=== PATIENT | female | born 1950 | race African-American/Black ===

== ENCOUNTER 2018-08-18 17:31 | Inpatient (IN) ==
[2018-08-18 18:00] LABS: BASO# 0.01 X1000 (0.0-0.2); BASO% 0.2 % (0.0-0.8); EOS% 1.7 % (0.0-10.0); HEMATOCRIT 30.3 % (37.0-47.0); HEMOGLOBIN 9.8 g/dL (12.0-16.0); IMM GRAN# 0.01 X1000 (0.0-0.04); IMM GRAN% 0.2 % (0.0-0.5); LYMPH# 1.04 X1000 (1.2-3.4); LYMPH% 17.2 % (20.5-51.1); MCH 27.5 PG (27-31); MCHC 32.3 g/dL (33-37); MCV 85.1 FL (81-99); MONO# 0.51 X1000 (0.11-0.59); MONO% 8.4 % (1.7-9.3); MPV 11.2 FL (7.4-10.4); NEUT# 4.39 X1000 (1.4-6.5); NEUT% 72.3 % (42.2-75.2); PLT 224 X1000 (130-400); RBC 3.56 XMIL (4.2-5.4); RDW 14.5 % (11.5-14.5); WBC 6.06 X1000 (4.8-10.8)
[2018-08-18 18:18] LABS: AGAP 11; ALKALINE PHOSPHATASE 87 U/L (32-104); BUN 9 mg/dL (8-22); CALCIUM 8.7 mg/dL (8.8-10.2); CHLORIDE 102 mmol/L (98-107); COSMO 274; CREATININE 0.6 mg/dL (0.5-0.9); ESTIMATED GFR > 60; GLUCOSE 93 mg/dL (70-104); GOT 17 U/L (10-30); GPT 10 U/L (10-36); LIPASE 11 U/L (13-60); POTASSIUM 3.2 mmol/L (3.5-5.1); SODIUM 138 mmol/L (136-145); TCO2 25 mmol/L (25-35); TOTAL PROTEIN 7.2 g/dL (6.3-8.3)
[2018-08-18] MEDS ORDERED: ZOFRAN IV ONE (18:22)
--- NOTE | 2018-08-18 18:22 | PROVIDER DOCUMENTATION ---
HPI-Abdominal Pain/GI Problem - General Chief Complaint: Abdominal Pain Stated Complaint: ABD PAIN Time Seen by Provider: 08/18/18 17:58 Source: patient, family Allergies/Adverse Reactions: Patient Allergies Allergy/AdvReac Type Severity Reaction Status Date / Time aspirin Allergy Unknown Verified 08/12/18 18:21 Home Medications: Home Medication List Medication Instructions Recorded Confirmed Last Taken Type Amlodipine [Norvasc] 10 mg PO DAILY #30 tablet 11/28/16 08/12/18 Unknown Rx Hydralazine [Apresoline] 25 mg PO BID #60 tablet 11/28/16 08/12/18 Unknown Rx Lisinopril 40 mg PO DAILY #30 tablet 11/28/16 08/12/18 Unknown Rx Albuterol 2.5MG/Ipratrop 0.5MG 3 ml INH Q6H PRN PRN #30 neb 02/06/17 08/12/18 Unknown Rx [Duoneb] Metoprolol Succinate E.r. [Toprol 50 mg PO DAILY #90 tablet 02/06/17 08/12/18 Unknown Rx Xl] Albuterol Sulfate [Albuterol 18 gm IH Q4H #1 hfa.aer.ad 06/03/17 08/12/18 Unknown Rx Sulfate Hfa] - History of Present Illness-ABD Nature of Presenting Problems: Off and on LLQ AP for 2 to 3 weeks, yesterday became a steady pain and by afternoon RLQ pain was added to it, ache, crampy, nausea with vomiting x 2 last night, nonbloody nonbilious, no fever, no diarrhea, normal stool around 0300 this am. PS large bowel resection 2011 for diverticulitis, partial hysto PMH HTN [place] in 1978, chronic pain but has missed several appointments so has not had [place] 10 for awhile. Pain Radiation: reports: no radiation Modifying Factors: improves with: nothing Bruising or Bleeding Gums?: No Similar Symptoms Previously?: Yes Recently seen or treated by another doctor?: No Review of Systems - Adult - REVIEW OF SYSTEMS - ADULT Constitutional: reports: no symptoms reported Eyes: reports: no symptoms reported Ears, Nose, Mouth & Throat: reports: no symptoms reported Cardiovascular: reports: no symptoms reported Respiratory: reports: no symptoms reported Gastrointestinal: reports: no symptoms reported Genitourinary: reports: no symptoms reported Musculoskeletal: reports: no symptoms reported Integumentary: reports: no symptoms reported Neurological: reports: no symptoms reported Psychiatric: reports: no symptoms reported Endocrine: reports: no symptoms reported Hematologic/Lymphatic: reports: no symptoms reported Allergic/Immunologic: reports: no symptoms reported All Other Systems: Reviewed and Negative Past History - Adult - PAST MEDICAL HISTORY-ADULT Review of Records: reports: Nursing Assessment Review, Medications Reviewed Major Childhood Illnesses: reports: denies history Cardiovascular: reports: CHF, HTN, [place] Respiratory: reports: asthma, bronchitis, COPD, sleep apnea Gastrointestinal: reports: GERD Obstetrical/Gynecological: reports: uterine/ovarian cancer Neurological: reports: CVA Psychiatric: reports: depression - PRIOR SURGERIES/PROCEDURES Surgical/Procedure History: reports: hysterectomy, BTL, other (cataract removal, oopherectomy) - IMMUNIZATION STATUS Childhood Immunizations: See Nurse Assessment Flu Vaccine: See Nurse Assessment Physical Exam-General - PHYSICAL EXAM-ADULT Initial Vital Signs Reviewed: Yes - CONSTITUTIONAL General Appearance: alert, mild distress - EYES Eyes: pink conjunctivae - HEAD, EARS, NOSE, MOUTH & THROAT HENMT: other (dry mucus membraines) - NECK Neck: supple - RESPIRATORY Respiratory: lungs clear, normal breath sounds, no pleuratic chest pain, no respiratory distress - CARDIOVASCULAR Cardiovascular: normal peripheral pulses, regular rate, rhythm, no edema - GASTROINTESTINAL (ABDOMEN) Abdominal Exam: soft, no organomegaly, no pulsatile mass, tenderness (diffusely) , other (decreased bowel sounds diffusely) - LYMPHATIC Lymphatic: no adenopathy - MUSCULOSKELETAL Extremity: normal range of motion Peripheral Pulses: radial (R): 2+, radial (L): 2+ - SKIN Integumentary: normal color, normal turgor, warm/dry - NEUROLOGIC Neurologic: grossly normal, no motor/sensory deficits - PSYCHIATRIC Psych/Mental Status: normal mood/affect, normal thought content, normal thought process Progress - PLAN OF CARE/RESULTS Progress/Plan/Lab Results: Vital Signs - 8 hr 08/18/18 17:34 Temperature 98.6 F Pulse Rate 79 Respiratory Rate 18 Blood Pressure 174/100 O2 Sat by Pulse Oximetry 98 Laboratory Results - last 24 hr 08/18/18 17:35 WBC 6.06 RBC 3.56 L Hgb 9.8 L Hct 30.3 L MCV 85.1 MCH 27.5 MCHC 32.3 L RDW Std Deviation 14.5 Plt Count 224 MPV 11.2 H Immature Gran % (Auto) 0.2 Neut % (Auto) 72.3 Lymph % (Auto) 17.2 L [place] % (Auto) 8.4 Eos % (Auto) 1.7 Baso % (Auto) 0.2 Immature Gran # (Auto) 0.01 Neut # (Auto) 4.39 Lymph # (Auto) 1.04 L [place] # (Auto) 0.51 Eos # (Auto) 0.10 Baso # (Auto) 0.01 Orders Category Date Time Status FLAT/UPRIGHT ABD/1 VIEW CHEST [RAD] Stat Exams 08/18/18 17:41 Taken AMYLASE [CHEM] Stat Lab 08/18/18 17:35 Received CBC WITH DIFF [HEME] Stat Lab 08/18/18 17:35 Completed COMPREHENSIVE METABOLIC PANEL [CHEM] Stat Lab 08/18/18 17:35 Received LIPASE [CHEM] Stat Lab 08/18/18 17:[address] W/POSS RFLX CULT [URINALYSIS] Stat Lab 08/18/18 17:41 Uncollected Result Diagrams: 08/18/18 17:35 Departure - Departure Date of Disposition Decision: 08/18/18 DIAGNOSIS: Abdominal pain Certified Medical Emergency: Emergent Condition: Good Referrals and Follow-Ups: Priscila Correa MD [Primary Care Provider] - - Critical Care Note This patient required my direct & personal management of CC.: No Attestation - Physician/ RICK Attestation The physician spent face to face time with patient:: Yes Advanced Practice Provider documentation review:: Supervising physician onsite and consulted in the evaluation and care of this patient. The physician did have a face to face encounter with the patient.
--- NOTE | 2018-08-18 18:22 | Diag Imaging Result Doc PS360 ---
EXAM: FLAT/UPRIGHT ABD/1 VIEW CHEST 08/18/2018 HISTORY: abd pain bloating TECHNIQUE: Flat and upright abdomen with PA chest COMMENT: There is stool throughout the colon. There are multiple distended small bowel loops with air-fluid levels. The stomach is not distended. Compared to the previous chest radiograph of 06/03/2017 there was previously a severe constipation. No previous abdominal studies are available for comparison. The appearance the chest has not changed significantly. IMPRESSION: Constipation. Early versus partial small bowel obstruction. Electronically signed by Clinton Cavazos 08/18/2018 6:20 PM
[2018-08-18] MEDS ORDERED: DILAUDID IV ONE (18:23)
[2018-08-18] MEDS ORDERED: NS 1,000 ML IV ONE ×2 (18:23→23:51)
--- NOTE | 2018-08-18 18:29 | PROVIDER DOCUMENTATION ---
HPI-Abdominal Pain/GI Problem - General Chief Complaint: Abdominal Pain Stated Complaint: ABD PAIN Time Seen by Provider: 08/18/18 17:58 Allergies/Adverse Reactions: Patient Allergies Allergy/AdvReac Type Severity Reaction Status Date / Time aspirin Allergy Unknown Verified 08/12/18 18:21 Home Medications: Home Medication List Medication Instructions Recorded Confirmed Last Taken Type Amlodipine [Norvasc] 10 mg PO DAILY #30 tablet 11/28/16 08/12/18 Unknown Rx Hydralazine [Apresoline] 25 mg PO BID #60 tablet 11/28/16 08/12/18 Unknown Rx Lisinopril 40 mg PO DAILY #30 tablet 11/28/16 08/12/18 Unknown Rx Albuterol 2.5MG/Ipratrop 0.5MG 3 ml INH Q6H PRN PRN #30 neb 02/06/17 08/12/18 Unknown Rx [Duoneb] Metoprolol Succinate E.r. [Toprol 50 mg PO DAILY #90 tablet 02/06/17 08/12/18 Unknown Rx Xl] Albuterol Sulfate [Albuterol 18 gm IH Q4H #1 hfa.aer.ad 06/03/17 08/12/18 Unknown Rx Sulfate Hfa] - History of Present Illness-ABD Nature of Presenting Problems: 2 weeks of off and on LLQ pain similar to past diverticulitis for which she had colon resection in 2011, yesterday pain became steady and yesterday afternoon added RLQ pain, has supper then threw up twice last night afterwards, at 0300 has normal bowel movement, no fever for past two weeks, no chest pain or back pain, no dysuria or frequency or urgency, PMH [place] 1979 colon resection 2011 CHF but is 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 Review of Systems - Adult - REVIEW OF SYSTEMS - ADULT Constitutional: reports: no symptoms reported. denies: chills, fever Eyes: reports: no symptoms reported Ears, Nose, Mouth & Throat: reports: no symptoms reported Cardiovascular: reports: no symptoms reported Respiratory: reports: no symptoms reported Gastrointestinal: reports: see HPI Genitourinary: reports: no symptoms reported Musculoskeletal: reports: no symptoms reported Integumentary: reports: no symptoms reported Neurological: reports: no symptoms reported Psychiatric: reports: no symptoms reported Endocrine: reports: no symptoms reported Hematologic/Lymphatic: reports: no symptoms reported Allergic/Immunologic: reports: no symptoms reported All Other Systems: Reviewed and Negative Past History - Adult - PAST MEDICAL HISTORY-ADULT Review of Records: reports: Nursing Assessment Review, Medications Reviewed Major Childhood Illnesses: reports: denies history Cardiovascular: reports: CHF, HTN, [place] Respiratory: reports: asthma, bronchitis, COPD, sleep apnea Gastrointestinal: reports: GERD Obstetrical/Gynecological: reports: uterine/ovarian cancer Neurological: reports: CVA Psychiatric: reports: depression - PRIOR SURGERIES/PROCEDURES Surgical/Procedure History: reports: hysterectomy, BTL, other (cataract removal, oopherectomy) - IMMUNIZATION STATUS Childhood Immunizations: See Nurse Assessment Flu Vaccine: See Nurse Assessment Physical Exam-General - PHYSICAL EXAM-ADULT Initial Vital Signs Reviewed: Yes - CONSTITUTIONAL General Appearance: appears well, alert, mild distress - EYES Eyes: pink conjunctivae - HEAD, EARS, NOSE, MOUTH & THROAT HENMT: other (dry mucus membranes) - NECK Neck: supple - RESPIRATORY Respiratory: lungs clear, normal breath sounds, no pleuratic chest pain, no respiratory distress, no accessory muscle use - CARDIOVASCULAR Cardiovascular: normal peripheral pulses, regular rate, rhythm, no edema - GASTROINTESTINAL (ABDOMEN) Abdominal Exam: soft, no organomegaly, no pulsatile mass, other (Mild tenderness diffusely, decreased bowel sounds diffusely). negative: guarding, rigid, rebound, hernia, mass, Campbell's sign, Rovsing's sign - LYMPHATIC Lymphatic: no adenopathy - MUSCULOSKELETAL Extremity: normal range of motion Peripheral Pulses: radial (R): 2+, radial (L): 2+ - SKIN Integumentary: normal color, normal turgor, warm/dry - NEUROLOGIC Neurologic: grossly normal, no motor/sensory deficits - PSYCHIATRIC Psych/Mental Status: normal mood/affect, normal thought content, normal thought process, oriented x 3 Progress - PLAN OF CARE/RESULTS Progress/Plan/Lab Results: Vital Signs - 8 hr 08/18/18 17:34 Temperature 98.6 F Pulse Rate 79 Respiratory Rate 18 Blood Pressure 174/100 O2 Sat by Pulse Oximetry 98 Laboratory Results - last 24 hr 08/18/18 08/18/18 17:35 17:35 WBC 6.06 RBC 3.56 L Hgb 9.8 L Hct 30.3 L MCV 85.1 MCH 27.5 MCHC 32.3 L RDW Std Deviation 14.5 Plt Count 224 MPV 11.2 H Immature Gran % (Auto) 0.2 Neut % (Auto) 72.3 Lymph % (Auto) 17.2 L [place] % (Auto) 8.4 Eos % (Auto) 1.7 Baso % (Auto) 0.2 Immature Gran # (Auto) 0.01 Neut # (Auto) 4.39 Lymph # (Auto) 1.04 L [place] # (Auto) 0.51 Eos # (Auto) 0.10 Baso # (Auto) 0.01 Sodium 138 Potassium 3.2 L Chloride 102 Carbon Dioxide 25 Anion Gap 11 BUN 9 Creatinine 0.6 Estimated GFR/1.73 m2 > 60 BUN/Creatinine Ratio 15 Glucose 93 Calculated Osmolality 274 Calcium 8.7 L Total Bilirubin 0.20 AST 17 ALT 10 Alkaline Phosphatase 87 Total Protein 7.2 Albumin 4.0 Globulin 3.0 Albumin/Globulin Ratio 1.0 Lipase 11 L Orders Category Date Time Status Saline Loc NOW Care 08/18/18 18:[address] ABD/PELVIS W/IV CONT ONLY [CT] Stat Exams 08/18/18 18:24 Ordered FLAT/UPRIGHT ABD/1 VIEW CHEST [RAD] Stat Exams 08/18/18 17:41 Taken AMYLASE [CHEM] Stat Lab 08/18/18 17:35 Received CBC WITH DIFF [HEME] Stat Lab 08/18/18 17:35 Completed COMPREHENSIVE METABOLIC PANEL [CHEM] Stat Lab 08/18/18 17:35 Received LACTATE, PLASMA [CHEM] Stat Lab 08/18/18 18:22 Uncollected LIPASE [CHEM] Stat Lab 08/18/18 17:[address] W/POSS RFLX CULT [URINALYSIS] Stat Lab 08/18/18 17:41 Uncollect ed 0.9% Sodium Chloride Inj [Ns] 1,000 ml Med 08/18/18 18:23 Ordered IV 200 mls/hr Hydromorphone [Dilaudid] Med 08/18/18 18:23 Once 1 mg IV NOW ONE Ondansetron [Zofran] Med 08/18/18 18:22 Once 4 mg IV NOW ONE Result Diagrams: 08/18/18 17:35 08/18/18 17:35 - REASSESSMENT Reassessment #1 Time Reassessed: 21:22 Status: improving (ABD PAIN IMPROVED, NOW 11/07, CALLING DR BAILEY) - CT/MRI 1 CT Study: Abdomen Comparison with other Films: changes noted (partial SBO) - CONSULTS/PCP/HOSPITALIST Notification #1 *Consult/PCP/Hospitalist*: dr BAILEY Consult Disposition: Admit - CHANGE OF SHIFT REPORT (ED Provider) 1 Report Given and Care Transferred to:: Jailyn Gregory Time of Transfer: 19:00 Items Pending: Labs, XRAY Results, CT/MRI Results, Pain Control Departure - Departure Date of Disposition Decision: 08/18/18 Time of Disposition Decision: : DIAGNOSIS: Abdominal pain, SBO (small bowel obstruction), Anemia Disposition: ADMITTED INPATIENT 09 Certified Medical Emergency: Emergent Condition: Stable Referrals and Follow-Ups: Priscila Correa MD [Primary Care Provider] - - Critical Care Note This patient required my direct & personal management of CC.: No Attestation - Physician/ RICK Attestation Patient care was provided by Advanced Practice Provider:: No The physician spent face to face time with patient:: Yes Advanced Practice Provider documentation review:: Supervising physician onsite and consulted in the evaluation and care of this patient. The physician did have a face to face encounter with the patient.
[2018-08-18 19:49] LABS: BILIRUBIN URINE NEGATIVE (NEGATIVE); BLOOD URINE NEGATIVE (NEGATIVE); CLARITY CLEAR (CLEAR); COLOR YELLOW; GLUCOSE URINE NEGATIVE (NEGATIVE); KETONE URINE TRACE mg/dL (NEGATIVE); LEUKOCYTES URINE TRACE (NEGATIVE); NITRITE URINE NEGATIVE (NEGATIVE); PROTEIN URINE TRACE mg/dL (NEGATIVE); UROBILINOGEN URINE NORMAL
[2018-08-18 19:50] LABS: URINE BACTERIA 1+ /HFP; URINE CAST NONE SEEN /LPF; URINE CRYSTAL NONE SEEN /HPF; URINE EPITHELIAL CELLS <10 /HPF (<10); URINE RBC <10 /HPF (<10); URINE SOURCE CLEAN CATCH; URINE WBC <10 /HPF (<10); URINE YEAST PRESENT /HPF
--- NOTE | 2018-08-18 19:50 | Diag Imaging Result Doc PS360 ---
EXAM: CT ABD/PELVIS W/IV CONT ONLY 08/18/2018 HISTORY: colitis TECHNIQUE: This exam was performed using automated exposure control, adjustment of mA or kV according to patient size, and/or use of iterative reconstruction technique. COMMENT: There are no previous studies available for comparison. There is a hiatal hernia. The spleen and adrenal glands are within normal limits. There are apparent cysts in the head of the pancreas. The common bile duct is dilated at almost 9 mm. There are small stones layering dependently in the gallbladder. There is a lucency in the right hepatic lobe on image 35 which may be a cyst. There are multiple renal cysts particularly on the left left side where there is a cyst measuring 4.9 cm in diameter. There is a fairly large amount of stool present in the colon. There are distended small bowel loops particularly on the right side of the abdomen. There is some infiltration of the mesenteric fat and thickening of the mucosal folds in these loops. The distal small bowel is not distended. Pelvis: There appears to be a transition in the midline on image 95 in the upper pelvis. There is diverticulosis in the sigmoid colon without evidence of active diverticulitis. There is free fluid in the cul-de-sac. There has been hysterectomy. The urinary bladder is not distended. There is vacuum joint phenomenon in the left sacroiliac joint and degenerative disc and facet changes in the lumbar spine. IMPRESSION: Partial small bowel obstruction. Constipation. Electronically signed by Clinton Cavazos 08/18/2018 7:48 PM
[2018-08-18] MEDS ORDERED: ZOFRAN IV PRN (23:51)
[2018-08-19] MEDS: MORPHINE IV PRN ×4 (06:16→20:13)
[2018-08-19] MEDS: LUMIGAN 0.01% OPH SOLUTION OPH SCH (10:37)
[2018-08-19] MEDS: DULCOLAX PR SCH ×3 (10:38→22:23)
[2018-08-19] MEDS: REGLAN IV SCH ×3 (10:38→22:23)
[2018-08-19] MEDS: VENTOLIN HFA INH SCH ×5 (10:47→22:40)
[2018-08-19] MEDS: NS 1,000 ML IV SCH (14:06)
[2018-08-19] MEDS: TYLENOL PO PRN (14:07)
--- NOTE | 2018-08-19 14:29 | HISTORY AND PHYSICAL ---
CHIEF COMPLAINT: Left lower quadrant pain, nausea, vomiting. HISTORY OF PRESENT ILLNESS: This is a 67-year-old female with a history of diverticulitis, ovarian cancer, hypertension, CHF, COPD. She presented to the emergency room complaining of abdominal pain that started the evening before she presented to the emergency room. She states it started out as left lower quadrant pain that was similar to her past diverticulitis pain. It then progressed to the right lower quadrant, became more intense and she started vomiting. She did have a normal bowel movement at 3 a.m. She denied any black or bloody vomitus or stools any diarrhea. PAST MEDICAL HISTORY: 1. Ovarian cancer. 2. Myocardial infarction 3. With a negative Lexiscan in September 2017. 4. Reported congestive heart failure with an echocardiogram in September 2017 that revealed excellent left ventricular systolic function, normal diastolic function with an EF of 65%. 5. Chronic obstructive pulmonary disease. 6. Gastroesophageal reflux disease. 7. Hypertension. 8. Glaucoma. PAST SURGICAL HISTORY: 1. Colon resection 2. Oophorectomy. 3. Hysterectomy. 4. Tubal ligation. 5. Liposuction. 6. Cataract removal. SOCIAL HISTORY: She denies alcohol, tobacco, or illicit drug use. ALLERGIES: Aspirin with unknown reaction and tetracycline and doxycycline causes vomiting. HOME MEDICATIONS: A list will be obtained by the nursing staff. Once verified, will review and restart as appropriate. REVIEW OF SYSTEMS: As discussed with patient with pertinent positives stated in the HPI. She denied any syncope, dizziness, chest pain, palpitations, any shortness of breath, cough, fever, chills, night sweats, any black or bloody vomitus or stools, hematuria, dysuria, frequency, urgency. PHYSICAL EXAMINATION: GENERAL: This is a 67-year-old female who is sitting up in the bed in no distress. VITAL SIGNS: Blood pressure is 139/64 with a heart rate of 64, respirations are 18, temperature is 98.3 degrees, room air saturations 96%. EYES: Pupils are equal, round, react to light EOMs are intact, sclerae anicteric. HEENT: Head is normocephalic, atraumatic. Mucous membranes are moist. NECK: Supple. Trachea midline. CARDIOVASCULAR: Regular rate and rhythm. S1 and S2 appreciated. She has no lower extremity edema. Peripheral pulses are palpable x4 extremities. Calves are nontender to palpation. PULMONARY: Breath sounds are clear with no increased work of breathing noted. Chest rises and falls with symmetric respiration. Chest wall is nontender to palpation. GASTROINTESTINAL: Abdomen is soft. It is tender bilateral lower quadrants and umbilical area with decreased bowel sounds throughout. NEUROLOGIC: She is alert oriented x3. SKIN: Warm and dry. LABORATORY: WBC is 6.0 with hemoglobin 9.8, hematocrit 30.3, platelets of 224,000. Sodium is 138, potassium 3.2, BUN 9, creatinine 0.6, glucose of 93, lipase is 11. Urinalysis is essentially negative. Urine culture revealed no growth. Abdominal x-ray revealed constipation early versus partial small bowel obstruction number. CT of the abdomen and pelvis reveals a transition line in the midline in the upper pelvis. There is diverticulosis in the sigmoid colon without evidence of diverticulitis. Free fluid in the cul- de-sac. Urinary bladder is not distended. There has been a hysterectomy. There is a fairly large amount of stool in the colon. There are distended bowel loops in the right side of the abdomen. Distal small bowel is not distended. ASSESSMENT: This is a 67-year-old female who presented to the emergency room complaining of abdominal pain, nausea, vomiting. She was found to have a partial small bowel obstruction. 1. Partial small bowel obstruction. 2. Abdominal pain secondary to #1. 3. Nausea and vomiting secondary to #1. 4. History of sick chronic obstructive pulmonary disease. 5. Hypertension. 6. Gastroesophageal reflux disease. 7. Glaucoma. 8. Coronary artery disease status post myocardial infarction. 9. Ovarian cancer status post oophorectomy. PLAN: 1. She will remain NPO. We will give IV hydration. We will start Reglan 10 mg IV every 6 hours scheduled with Dulcolax per rectum every 6 hours, giving morphine 2 mg for pain and Zofran for nausea. 2. We will repeat a CBC and BMP in the morning as well as a flat and upright of the abdomen. 3. We will identify her home medications and continue as appropriate. 4. Further treatments pending hospital course thank you. Dictated by QING Bailey for Shiv Whitaker MD This chart was documented by, QING Bailey and accurately reflects the services performed, treatment plan and medical decisions as attested by the providers signature Shiv Whitaker MD. cc: QING Bailey MD
[2018-08-19] MEDS: DULERA 200 MCG/5 MCG INHALER INH SCH (19:09)
--- NOTE | 2018-08-20 01:54 | HISTORY AND PHYSICAL ---
ADDENDUM: Patient seen and examined by myself. Full note dictated and discussed with nurse practitioner. Patient notes that she had sudden onset of abdominal pain, nausea, vomiting. CT shows partial small-bowel obstruction. We will admit her to the hospital, keep her NPO. We will not use any NG tube currently as she is not retching and we will follow. Please see full note. cc: Shiv Whitaker MD
[2018-08-20] MEDS: MORPHINE IV PRN ×2 (02:36→06:00)
[2018-08-20] MEDS: NS 1,000 ML IV SCH (03:00)
[2018-08-20] MEDS: VENTOLIN HFA INH SCH ×5 (04:03→15:54)
[2018-08-20] MEDS: DULCOLAX PR SCH ×2 (06:00→09:53)
[2018-08-20] MEDS: REGLAN IV SCH ×2 (06:00→09:53)
[2018-08-20 07:24] LABS: HEMOGLOBIN 8.8 g/dL (12.0-16.0); MCH 26.9 PG (27-31); MCHC 31.4 g/dL (33-37); MCV 85.6 FL (81-99); MPV 11.2 FL (7.4-10.4); RBC 3.27 XMIL (4.2-5.4); WBC 4.65 X1000 (4.8-10.8)
[2018-08-20 07:35] LABS: AGAP 13; BUN 6 mg/dL (8-22); CALCIUM 8.6 mg/dL (8.8-10.2); CHLORIDE 110 mmol/L (98-107); COSMO 287; CREATININE 0.5 mg/dL (0.5-0.9); ESTIMATED GFR > 60; GLUCOSE 79 mg/dL (70-104); POTASSIUM 3.1 mmol/L (3.5-5.1); SODIUM 146 mmol/L (136-145); TCO2 23 mmol/L (25-35)
[2018-08-20] MEDS: DULERA 200 MCG/5 MCG INHALER INH SCH (07:36)
--- NOTE | 2018-08-20 08:25 | Diag Imaging Result Doc PS360 ---
EXAM: ABDOMEN FLAT/UPRIGHT INDICATION: partial SBO TECHNIQUE: 3 views COMPARISON: 08/18/2018 FINDINGS: The gaseous distention of small bowel seen on the previous study has grossly resolved. There is still a large amount of stool in the colon and rectum suggesting significant constipation. There is no evidence of large volume free abdominal gas. IMPRESSION: No small bowel gaseous distention identified on the current study but large amount of stool in the colon suggesting constipation. Electronically signed by Afshin Zuniga 08/20/2018 8:23 AM
[2018-08-20] MEDS ORDERED: AVAPRO PO SCH (09:00)
[2018-08-20] MEDS ORDERED: TOPROL XL PO SCH (09:00)
[2018-08-20] MEDS: LUMIGAN 0.01% OPH SOLUTION OPH SCH (09:00)
[2018-08-20] MEDS ORDERED: LACTULOSE PO ONE (10:25)
[2018-08-20] MEDS: TYLENOL PO PRN (13:00)
[2018-08-20] MEDS ORDERED: KLOR-CON PO ONE (13:43)
[2018-08-20 15:42] VITALS: BP 187/72
--- NOTE | 2018-08-21 04:15 | DISCHARGE SUMMARY ---
ADMISSION DATE: 08/19/2018 DISCHARGE DATE: 08/20/2018 DIAGNOSES: 1. Partial small bowel obstruction, resolved. 2. Abdominal pain, nausea and vomiting secondary to #1, resolved. 3. History of chronic obstructive pulmonary disease. 4. Hypertension. 5. Gastroesophageal reflux disease. 6. Coronary artery disease, status post myocardial infarction. 7. Ovarian cancer, status post oophorectomy. DIAGNOSTICS: 1. 08/18/2018 abdominal x-ray revealed constipation and early versus partial small bowel obstruction. 2. CT of the abdomen and pelvis with IV contrast revealed partial small bowel obstruction and constipation. 3. Repeat flat and upright of the abdomen 08/20/2018 revealed no small bowel gaseous distention identified, but a large amount of stool in this colon suggesting constipation. MICROBIOLOGY: Urine culture reveals no pathogenic growth. HOSPITAL COURSE: Ms Gallardo presented with left lower quadrant pain, nausea, and vomiting. She was found to have a partial small bowel obstruction as well as constipation. She was initially held NPO with ice chips, given scheduled IV Reglan and Dulcolax suppositories. She has had 3 small bowel movements. She is passing gas. She has no further abdominal distention, pain, nausea and vomiting. In fact, she has eaten 2 meals today without any nausea and vomiting. Thankfully, she is ready to be discharged. DISCHARGE VITAL SIGNS: Blood pressure is 150/80 with a heart rate of 58, respirations 16, temperature 98.1 degrees oral with room air saturation 98%. DISCHARGE PHYSICAL EXAMINATION: Cardiovascular: Regular rate and rhythm. S1 and S2 appreciated. She has no lower extremity edema with peripheral pulses palpable x4 extremities. Calves are nontender to palpation. Pulmonary: Breath sounds are clear with no increased work of breathing noted. Gastrointestinal: Abdomen is soft, nontender, nondistended with bowel sounds in all 4 quadrants. Neurologic: She is alert and oriented x3. Skin: Warm and dry. DISCHARGE MEDICATIONS: 1. MiraLAX 17 g p.o. daily. 2. Omeprazole 20 mg p.o. daily. 3. Singulair 10 mg p.o. at bedtime. 4. Dulera 1 inhalation b.i.d. 5. Toprol-XL 50 mg p.o. daily. 6. [place] 7.5/325 one q.12 hours as needed. 7. Avapro 300 mg p.o. daily. 8. [place] 1 drop to each eye daily. 9. Albuterol inhaler q.4 hours as needed p.r.n. wheezing. FOLLOW-UP: She is to follow up with her primary care physician in 1 week, sooner if needed. She has been instructed to call to be seen sooner or return to the emergency room for any chest pain, syncope, dizziness, palpitations, any return of nausea or vomiting, any diarrhea, constipation, black or bloody vomitus or stools, or any questions or concerns that she may have. She is being discharged home in stable condition with family members. TIME SPENT: This is a greater than 30 minute discharge. Dictated by QING Bailey for Shiv Whitaker MD This chart was documented by, QING Bailey and accurately reflects the services performed, treatment plan and medical decisions as attested by the providers signature Shiv Whitaker MD. cc: QING Bailey MD
--- NOTE | 2018-08-21 04:27 | DISCHARGE SUMMARY ---
ADMISSION DATE: 08/19/2018 DISCHARGE DATE: 08/20/2018 ADDENDUM: The patient notes that she is feeling a lot better this morning. She is tolerating a soft diet. She has had some bowel movements. We will discharge her home. She will follow up outpatient with primary care of her choice. Please see full note. cc: Shiv Whitaker MD
== END 2018-08-20 17:44 | disposition home or self-care (01) | DRG 390 ==
LOC: P.MEDSURG 17:31 → P.ED 17:31 → P.MEDSURG 08-20 14:42
PROVIDERS: ATTEND Family Medicine
CPT/HCPCS: 74019; 74020; 74022; 74177; 80048; 80053; 81001; 82150; 83605; 83690; 85025; 85027; 87088; 94640; 94761; 96374; 96375; 99285; A9270; J1170; J2270; J2405; J2765; J7030; Q9967